=== PATIENT | male | born 1990 ===

== ENCOUNTER 2021-01-14 15:18 | Emergency (ER) | payer SELFPAY ==
[~2021-01-14] VITALS: Ht 200.7 cm; Wt 87.3 kg
[2021-01-14 15:21] VITALS: BP 115/73
--- NOTE | 2021-01-14 15:35 | NUR ---
pt presents to ed with c/o pain/swelling to R ankle after rolling it at work. swelling/erythema noted to R ankle.
--- NOTE | 2021-01-14 16:39 | NUR ---
ermd at bedside to discuss poc
--- NOTE | 2021-01-14 17:15 | NUR ---
discharge instructionss reviewed, pt verbalized understanding. ED EMT at bedside to fit for crutches.
== END 2021-01-14 17:30 | disposition home or self-care (01) ==
LOC: ED 17:24
DX: S93.492A Sprain of other ligament of left ankle, initial encounter (principal); F17.200 Nicotine dependence, unspecified, uncomplicated; X50.1XXA Overexertion from prolonged static or awkward postures, initial encounter; Y93.89 Activity, other specified; Y92.69 Other specified industrial and construction area as the place of occurrence of the external cause; Y99.8 Other external cause status
CPT/HCPCS: 99283